=== PATIENT | male | born 1960 | race African-American/Black ===

== ENCOUNTER 2016-07-15 14:14 | Emergency (ER) | payer MEDICARE, OTHER ==
[~2016-07-15] VITALS: Ht 171.4 cm; Wt 117.9 kg
[2016-07-15 15:44] LABS: BASO # 0.1 x10^3/uL (0.0-0.2); BASO % 1 % (0-3); EOS % 2 % (0-3); HEMATOCRIT 45.4 % (39.0-53.0); HEMOGLOBIN 15.1 g/dL (13.0-17.5); LYMPH # 1.6 x10^3/uL (1.0-4.8); LYMPH % 19 % (24-48); MEAN CORPUSCULAR HEMOGLOBIN 31 pg (25-35); MEAN CORPUSCULAR HGB CONC 33 g/dL (31-37); MEAN CORPUSCULAR VOLUME 93 fL (79-100); MONO % 9 % (0-9); NEUT % 69 % (31-73); PLATELET COUNT 197 x10^3/uL (140-400); RED CELL DISTRIBUTION WIDTH 13.6 % (11.5-14.5); WHITE BLOOD COUNT 8.3 x10^3/uL (4.0-11.0)
[2016-07-15 15:54] LABS: ALBUMIN 3.5 g/dL (3.4-5.0); ALBUMIN/GLOBULIN RATIO 0.9 (1.0-1.7); CALCIUM 9.6 mg/dL (8.5-10.1); CREATININE 1.2 mg/dL (0.7-1.3); GFR 75.5; POTASSIUM 4.3 mmol/L (3.5-5.1); TOTAL BILIRUBIN 0.5 mg/dL (0.2-1.0); TOTAL PROTEIN 7.5 g/dL (6.4-8.2)
[2016-07-15 16:06] LABS: BILIRUBIN,URINE NEGATIVE (NEG); GLUCOSE,URINE >=1000 mg/dL (NEG); NITRITE,URINE NEGATIVE (NEG); PH,URINE 5.5; PROTEIN,URINE NEGATIVE (NEG-TRACE); UROBILINOGEN,URINE 0.2 mg/dL (0.2 mg/dL)
[2016-07-15] MEDS: IV NORMAL SALINE 1000ML BAG 1,000 ML IV SCH ×2 (16:10→17:17)
[2016-07-15 16:22] LABS: BACTERIA,URINE 0 /HPF (0-FEW); RBC,URINE 0 /HPF (0-2); SQUAMOUS EPITHELIAL CELL,UR OCC /LPF; WBC,URINE OCC /HPF (0-4)
--- NOTE | 2016-07-15 16:36 | EKG ---
[facility] [address] [place] [address] Test Date: 2016-07-15 Test Time: 15:53:29 Pat Name: VIVIEN DOOLEY Department: Room: Gender: M [employer] Admin: : [id number] Requested By: MITCHELL OCAMPO Order Number: [id number] Reading MD: Bridgett Lawrence Measurements Intervals [place] Rate: 98 P: 42 MO: 136 QRS: -3 QRSD: 94 T: 42 QT: 362 QTc: 464 Interpretive Statements SINUS RHYTHM LEFT ATRIAL ABNORMALITY LEFTWARD AXIS ABNORMAL ECG RI6.01 No previous ECG available for comparison Electronically Signed On 07-17-2016 0:23:02 CLINICAL LABORATORY MANAGER by Bridgett Lawrence
[2016-07-15] MEDS ORDERED: INSU100V31 SQ (18:01)
[2016-07-15] MEDS ORDERED: INSU100V8 SQ (18:01)
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
[2016-07-15 18:03] VITALS: BP 161/86
[2016-07-15] MEDS ORDERED: INSULIN DETEMIR 300 UNITS/3 ML INSULN.PEN. SQ STA (18:03)
--- NOTE | 2016-07-16 08:37 | RAD ---
Indication difficulty breathing. Low oxygen saturation. A single view of the chest was obtained. No prior imaging is available. Heart size is at the upper limits of normal. There is probable mild pulmonary vascular congestion. Gross congestive heart failure is not seen. There is no consolidated pneumonia significant pleural fluid collection or pneumothorax. There is irregularity involving right ribs most compatible with old, healed, fractures. There are degenerative changes about the left shoulder. IMPRESSION: No focal consolidated pneumonia. Probable mild pulmonary vascular congestion.
== END 2016-07-15 18:33 | disposition home or self-care (01) ==
LOC: ER 14:14
DX: E10.65 Type 1 diabetes mellitus with hyperglycemia (principal); I10 Essential (primary) hypertension
CPT/HCPCS: 36415; 71010; 80053; 81001; 82947; 85027; 93005; 96360; 96361; 96372; 99285; J1815; J7030